=== PATIENT | male | born 1950 | race Caucasian/White ===

== ENCOUNTER 2019-04-11 18:44 | Observation (INO) | payer MEDICARE, MEDICAID, SELFPAY | END 2019-04-12 21:55 | disposition other institution (70) | PROVIDERS: Admitting Provider Hospitalist; Emergency Provider Emergency Medicine; Family Provider Family Medicine; Visit Provider Family Medicine | DX: Z91.81 History of falling (principal); E87.6 Hypokalemia; R79.89 Other specified abnormal findings of blood chemistry; E43 Unspecified severe protein-calorie malnutrition; Z68.1 Body mass index [BMI] 19.9 or less, adult; I82.4Z2 Acute embolism and thrombosis of unspecified deep veins of left distal lower extremity; I10 Essential (primary) hypertension; I82.592 Chronic embolism and thrombosis of other specified deep vein of left lower extremity; S06.5X9A Traumatic subdural hemorrhage with loss of consciousness of unspecified duration, initial encounter; X58.XXXA Exposure to other specified factors, initial encounter; F17.210 Nicotine dependence, cigarettes, uncomplicated; D64.9 Anemia, unspecified; Z59.9 Problem related to housing and economic circumstances, unspecified; F32.9 Major depressive disorder, single episode, unspecified; R73.03 Prediabetes; Z82.49 Family history of ischemic heart disease and other diseases of the circulatory system; R53.81 Other malaise | CPT/HCPCS: 36415 ×2; 36416 ×3; 36600; 51702; 70450; 71045 ×2; 72125; 72128; 80048 ×2; 80053 ×2; 80061; 82803; 82962 ×5; 83735 ×2; 84100 ×2; 84145; 84484 ×3; 85014; 85018; 85025 ×2; 85610; 85651; 86141; 87040 ×2; 93005 ×4; 93971; 94002; 94799; 96374; 96375 ×2; 99285; C8929; G0378 ×91; J0696; J1100; J1940; J2704; J3370; J7050; Q9956 ==